=== PATIENT | female | born 1975 | race Caucasian/White ===

== ENCOUNTER 2018-08-06 10:17 | Emergency (ER) | payer OTHER ==
[~2018-08-06] VITALS: Ht 165.1 cm; Wt 72.6 kg
--- OUTSIDE RECORDS SUMMARY | 2018-08-06 10:19 | XMS REPORT | Continuity of Care Document ---
Author Author [facility] Interface Address Unknown Phone Unavailable Problems Problem Status Onset Date Classification Date Reported Comments Source ROUTINE Active 11/25/2016 [facility] Medications Medication Details Route Status Patient Instructions Ordering Provider Order Date Source Allergies, Adverse Reactions, Alerts Substance Category Reaction Severity Reaction type Status Date Reported Comments Source Immunizations Immunization Date Given Site Status Last Updated Comments Source Results Order Name Results Value Reference Range Date Interpretation Comments Source Breast Mammo Scrn KINZA incl CAD [place] Breast Mammo Scrn KINZA incl CAD [place] - BREAST MAMMO SCRN KINZA INCL CAD [place] BILATERAL FIRST EVER DIGITAL SCREENING MAMMOGRAM WITH CAD: 12/27/2016 CLINICAL: Routine. Current study was evaluated with a Computer Aided Detection (CAD) system. There are no comparison films available as this is the patient's baseline mammogram. The tissue of both breasts is heterogeneously dense, which could obscure detection of small masses. No significant masses, calcifications, or other findings are seen in either breast. IMPRESSION: NEGATIVE There is no mammographic evidence of malignancy. A 1 year screening mammogram is recommended. Keshav york/josse:12/27/2016 13:27:04 Repair Welder: Jacquelin Gaitan, [facility] This exam was dictated and interpreted by [id number] for [facility]. letter sent: Normal [facility] Mammogram BI-RADS: 1 Negative 12/27/2016 - - Read by: Keshav Pedersen MD Dictated Date/time: 12/27/16 13:27 Electronically Signed by: Keshav Pedersen MD 12/27/16 13:27 FINAL REPORT [facility] Vital Signs Vital Sign Value Date Comments Source Encounters Location Location Details Encounter Type Encounter Number Reason For Visit Attending Provider ADM Date DC Date Status Source [facility] Outpatient [id number] Roseanna Smith 12/27/2016 12/28/2016 [facility] Procedures Procedure Code Date Perfomer Comments Source
--- OUTSIDE RECORDS SUMMARY | 2018-08-06 10:19 | XMS REPORT | Summary of Care ---
Author Author [facility] Organization [facility] Address Unknown Phone Unavailable Encounter HQ Encntr_alias(FIN) [id number] Date(s): 12/27/16 - 12/27/16 [facility] [address] [place] [address]- Discharge Disposition: Home or Self Care Attending Physician: Roseanna Smith MD Referring Physician: Roseanna Smith MD Vital Signs No data available for this section Problem List No data available for this section Allergies, Adverse Reactions, Alerts No data available for this section Medications No data available for this section Results No data available for this section Immunizations No data available for this section Procedures No data available for this section Social History No data available for this section Assessment and Plan No data available for this section
--- NOTE | 2018-08-06 11:31 | Diagnostic Imaging Report ---
Exam: Right foot, 3 views History: Pain Comparison: None. Findings: There is an acute, oblique fracture of the fifth metatarsal diaphysis without intra-articular extension. Adjacent soft tissue swelling. No additional displaced fracture. Joint spaces are well-maintained. Impression: Acute, oblique minimally displaced fracture of the fifth metatarsal diaphysis without intra-articular extension. Overlying soft tissue swelling. Signed by: Dr. Eric Lott M.D. on 08/06/2018 11:28 AM
[2018-08-06 12:19] VITALS: BP 150/93
== END 2018-08-06 12:33 | disposition home or self-care (01) ==
LOC: FSED 10:17
DX: S92.351A Displaced fracture of fifth metatarsal bone, right foot, initial encounter for closed fracture (principal); X50.1XXA Overexertion from prolonged static or awkward postures, initial encounter; Y92.22 Religious institution as the place of occurrence of the external cause; K21.9 Gastro-esophageal reflux disease without esophagitis; F32.9 Major depressive disorder, single episode, unspecified
CPT/HCPCS: 99284